=== PATIENT | male | born 1985 | race African-American/Black ===

== ENCOUNTER 2020-10-13 17:21 | Inpatient (IN) ==
[2020-10-13 18:11] LABS: Basophils # 0.1 K/mcL (0.0-0.2); Basophils % 0.7 %; Eosinophils % 0.5 %; Hemoglobin 14.6 g/dL (12.9-16.9); Immature Granulocytes % 0.3 % (0-4); Lymphocytes # 1.5 K/mcL (0.6-4.6); Lymphocytes % 19.8 %; Mean Corpuscular HGB Conc 33.2 g/dL (31.6-35.5); Mean Corpuscular Volume 84.5 fL (83.0-100.0); Mean Platelet Volume 9.9 fL (9.4-12.4); Monocytes # 0.8 K/mcL (0.0-1.3); Monocytes % 10.6 %; Neutrophils # 5.1 K/mcL (1.6-8.9); Platelet Count 310 K/mcL (140-400); Red Blood Count 5.21 M/mcL (4.19-5.50); Red Cell Distribution Width 12.4 % (11.5-14.5); Segmented Neutrophils % 68.1 %; White Blood Count 7.4 K/mcL (4.3-11.1)
[2020-10-13 18:23] LABS: Acetaminophen < 10 mcg/mL (10-20); Alanine Aminotransferase 19 Units/L (7-52); Albumin 4.4 g/dL (3.5-5.7); Albumin/Globulin Ratio 1.2 (1.1-2.2); Alkaline Phosphatase 80 Units/L (34-104); Aspartate Amino Transferase 14 Units/L (13-39); BUN/Creatinine Ratio 14 (6-26); Bilirubin,Direct 0.1 mg/dL (0.0-0.2); Bilirubin,Indirect 0.4 mg/dL (0.0-1.0); Bilirubin,Total 0.5 mg/dL (0.3-1.0); Blood Urea Nitrogen 16 mg/dL (6-20); Calcium 9.1 mg/dL (8.6-10.3); Carbon Dioxide 28 mEq/L (23-29); Chloride 101 mEq/L (98-107); Ethanol < 10 mg/dL (Less than 10); Globulin 3.7 g/dL (2.4-3.5); Glucose 109 mg/dL (70-105); Osmolality,Calculated 286 (280-300); Potassium 3.7 mEq/L (3.5-5.1); Salicylate < 2.5 mg/dL (15.0-30.0); Sodium 137 mEq/L (136-145); Total Protein 8.1 g/dL (6.4-8.9); eGFR For African Americans > 60 (> 60); eGFR For Non-African Americans > 60 (> 60)
[2020-10-13 18:35] LABS: Thyroid Stimulating Hormone 2.534 mcIU/mL (0.340-5.600)
[2020-10-13 19:04] LABS: Amphetamine Screen,Urine Negative ng/mL (Cutoff=1000); Barbiturate Screen,Urine Negative ng/mL (Cutoff=200)
[2020-10-13 19:05] LABS: Benzodiazepines Screen,Urine Negative ng/mL (Cutoff=300); Cannabinoid Screen,Urine Negative ng/mL (Cutoff = 50); Cocaine Screen,Urine Negative ng/mL (Cutoff= 300); Opiate Screen,Urine Negative ng/mL (Cutoff=300); Phencyclidine Screen,Urine Negative ng/mL (Cutoff=25)
[2020-10-13 19:23] LABS: Bacteria,Urine Few per hpf (None-Few); Bilirubin,Urine Negative (Negative); Blood,Urine Negative (Negative); Clarity,Urine Clear (Clear); Color,Urine Yellow (Yellow); Glucose,Urine (UA) Normal (Normal); Ketones,Urine Negative (Negative); Leukocyte Esterase,Urine Negative (Negative); Mucus,Urine Few per lpf (None-Few); Nitrite,Urine Negative (Negative); Protein,Urine 30 mg/dL (Neg-Trace); Specific Gravity,Urine > 1.030 (1.010-1.025); Sperm,Urine Present (None Seen); Squamous Epithelial Cell,Urine Few per hpf (None-Few); Urobilinogen,Urine Normal (Normal); WBC,Urine 0-3 per hpf (0-3)
[2020-10-13] MEDS ORDERED: *HR* LORazepam 1 MG TABLET PO PRN (21:18)
[2020-10-13] MEDS ORDERED: hydrOXYzine pamoate 25 MG CAPSULE PO PRN (21:18)
[2020-10-13] MEDS ORDERED: haloperidoL 5 MG TABLET PO PRN (21:18)
[2020-10-13] MEDS ORDERED: Ibuprofen 400 MG TABLET PO PRN (21:18)
[2020-10-13] MEDS ORDERED: traZODone 50 MG TABLET PO PRN (21:18)
[2020-10-13] MEDS ORDERED: Mag Hydrox/Al Hydrox/Simeth 30 ML UDC PO PRN (21:18)
[2020-10-13] MEDS ORDERED: *HR* LORazepam 2 MG/ML VIAL IM PRN (21:18)
[2020-10-13] MEDS ORDERED: Haloperidol Lactate 5 MG/ML VIAL IM PRN (21:18)
[2020-10-13] MEDS ORDERED: MOM Conc 10 ML UD.LIQ PO PRN (21:18)
[2020-10-13] MEDS ORDERED: QUEtiapine Fumarate 300 MG TABLET PO SCH (21:30)
[2020-10-13] MEDS: traZODone 50 MG TABLET PO SCH (22:34)
[2020-10-14] MEDS: traZODone 50 MG TABLET PO SCH (20:05)
[2020-10-14] MEDS: QUEtiapine Fumarate 100 MG TABLET PO SCH (20:06)
[2020-10-15] MEDS: QUEtiapine Fumarate 100 MG TABLET PO SCH (20:35)
[2020-10-15] MEDS: traZODone 50 MG TABLET PO SCH (20:36)
[2020-10-16] MEDS: QUEtiapine Fumarate 100 MG TABLET PO SCH (20:25)
[2020-10-16] MEDS: traZODone 50 MG TABLET PO SCH (20:25)
[2020-10-16] MEDS ORDERED: traZODone 50 MG TABLET PO SCH (21:00)
[2020-10-17 08:52] VITALS: BP 110/62
== END 2020-10-17 16:00 | disposition home or self-care (01) | DRG 753 ==
LOC: EMEROOARM 17:21 → 1ANU 21:16
PROVIDERS: ADMIT Student in an Organized Health Care Education/Training Program; ATTEND Psychiatry & Neurology Psychiatry